=== PATIENT | male | born 1955 | race Two or more races ===

== ENCOUNTER 2025-04-11 15:10 | Emergency (ER) | payer MEDICARE, SELFPAY ==
--- NOTE | 2025-04-11 15:14 | EKG_ITS ---
[facility] Test Date: 2025-04-11 Pat Name: JOANA RODRIGUEZ Department: Room: - Gender: Male [employer] Processing Supervisor: : 1955 Requested By: Ayaka Mark Order Number: [id number] Reading MD: Ayaka Mark Measurements Intervals [place] Rate: 93 P: 62 UT: 149 QRS: -23 QRSD: 89 T: 22 QT: 340 QTc: 424 Interpretive Statements SINUS RHYTHM WITH FREQUENT VENTRICULAR PREMATURE COMPLEXES BORDERLINE LEFT AXIS DEVIATION [QRS AXIS < -20] ABNORMAL RHYTHM ECG WARNING: DATA QUALITY MAY AFFECT INTERPRETATION Compared to ECG 11/08/2022 16:44:10 Ventricular premature complex(es) now present /store/S0/[id number]/ecg/[id number].pdf
--- NOTE | 2025-04-11 15:14 | XR_ITS ---
Examination: AP chest single view. Technique: AP portable upright chest single view. Indications: Chest pain shortness of breath today. Findings: Normal heart size. Early pneumonia right lower lobe. Moderate osteopenia. Impression: Early pneumonia right lower lobe.
[2025-04-11 15:15] VITALS: BP 125/69; PULSE 87; RESP 16; TEMP 36.9; O2SAT 97
[2025-04-11 15:16] VITALS: BMI 26.4
[2025-04-11 15:24] VITALS: PULSE 88; RESP 16; O2SAT 99
[2025-04-11] MEDS: RINGERS LACTATED 1000 ML 1,000 ML 999 ML IV (15:40)
[2025-04-11 16:10] LABS: Base Excess, Venous -2 (-3-3); O2 Saturation, Venous 93 % (96-97); PCO2, Venous 45 mmHg (36-56); PO2, Venous 63 mmHg (15-58); pH, Venous 7.33 (7.33-7.66)
[2025-04-11 16:11] LABS: Collection Type, Urine Clean Catch; RBC,Urine 0 /hpf (0-3)
[2025-04-11 16:13] LABS: Basophils # (Auto) 0.1 Thou/mm3 (0.0-0.2); Basophils % (Auto) 1 % (0-2.5); Eosinophils # (Auto) 0.4 Thou/mm3 (0.0-0.5); Eosinophils % (Auto) 6 % (0-10); Hematocrit 36.1 % (41.0-53.0); Hemoglobin 12.3 g/dL (13.5-16.0); Immature Granulocytes Auto 0.04 Thou/mm3 (0.00-0.00); Lymphocytes # (Auto) 1.5 Thou/mm3 (1.0-4.8); Lymphocytes % (Auto) 21 % (10-50); Mean Corpuscular HGB Conc 34.1 g/dl (31.0-37.0); Mean Corpuscular Hemoglobin 29.1 pg (25.0-35.0); Mean Corpuscular Volume 85 fL (80-100); Monocytes # (Auto) 0.5 Thou/mm3 (0.0-0.8); Monocytes % (Auto) 6 % (0-12); Neutrophils # (Auto) 4.7 Thou/mm3 (1.8-7.7); Neutrophils % (Auto) 65 % (37-80); Nucleated Red Blood Cell # 0.00 Thou/mm3 (0.00-0.00); Nucleated Red Blood Cell % 0 /100 WBC (0); Platelet Count 254 Thou/mm3 (140-440); RDW Standard Deviation 47.5 fL (35.1-43.9); Red Blood Count 4.23 Miln/mm3 (4.50-5.90); White Blood Count 7.2 Thou/mm3 (3.8-10.6)
[2025-04-11 16:38] LABS: Bilirubin,Urine Negative (Negative); Blood,Urine Negative (Negative); Clarity,Urine Clear (Clear/Hazy); Color,Urine Lt-Yellow (Lt Yel-Yel); Culture Indicated,Urine Not Indicated; Glucose, Urine 4+ (Negative); Ketones,Urine Negative (Negative); Leukocyte Esterase,Urine Negative (Negative); Nitrite,Urine Negative (Negative); PH,Urine 6.0 (5.0-7.0); Protein,Urine Trace (Neg - Trace); Specific Gravity,Urine 1.024 (1.001-1.035); Squamous Epithelial Cell,Urine < 1 /hpf (0-5); Urobilinogen,Urine Negative mg/dL (0.0-1.0); WBC,Urine < 1 /hpf (0-5)
[2025-04-11 16:50] LABS: Alanine Aminotransferase 15 U/L (10-49); Albumin, Serum 4.2 gm/dL (3.4-4.8); Albumin/Globulin Ratio 1.5 (1.2-2.2); Alkaline Phosphatase 139 U/L (46-116); Anion Gap 10 (7-16); Aspartate Amino Transferase 14 U/L (0-34); BUN/Creatinine Ratio 12 Ratio (12-20); Bilirubin,Total 1.1 mg/dL (0.3-1.2); Blood Urea Nitrogen 27 mg/dL (9-23); Calcium 9.4 mg/dL (8.3-10.6); Calcium (Corrected) 9.4 mg/dL (8.5-10.1); Carbon Dioxide 24.1 mMol/L (20.0-31.0); Chloride 96 mMol/L (98-107); Creatine Kinase 43 U/L (34-171); Creatinine (Component) 2.3 mg/dL (0.6-1.3); Estimated Creatinine Clearance 22.7 mL/min (>60); Globulin 2.8 gm/dL (2.3-3.5); Lipase 52 U/L (12-53); Osmolality,Calculated 289 (275-295); Potassium 4.6 mMol/L (3.4-5.1); Sodium 130 mMol/L (136-145); Total Protein 7.0 gm/dL (5.7-8.2); Troponin I < 0.002 ng/mL (0.0-0.045); eGFR 30 See Note
[2025-04-11 16:53] LABS: Glucose 535 mg/dL (74-106)
[2025-04-11 18:32] VITALS: BP 117/73; PULSE 71; RESP 16; TEMP 36.8; O2SAT 97
--- NOTE | 2025-04-11 18:53 | PD.EDDIZZY ---
ED Dizzyness RME/HPI General Chief Complaint: Dizziness Stated Complaint: DIZZINESS Time Seen by Provider: 04/11/25 15:14 Source: patient and EMS Arrival date/time: 04/11/25 15:10 Limitations: no limitations RME / HPI RME / HPI Narrative: Patient is a 70-year-old male is in the emergency department with concerns for feeling lightheaded, that he is going to faint, and generally unwell. Endorses excessive sweating. Denies chills, chest pain, palpitations, abdominal pain does endorse dysuria. Denies drugs alcohol smoking recent travel or sick contacts. MD complaint: near syncope Timing: sudden onset Related Data Home Medications ?Medication ?Instructions ?Recorded ?Confirmed aspirin 81 mg tablet,delayed 81 mg PO QDAY 11/09/19 07/21/23 release atorvastatin 20 mg tablet 20 mg PO QDAY 11/09/19 07/21/23 glimepiride 4 mg tablet 4 mg PO QAM 11/09/19 07/21/23 lisinopril 40 mg tablet 40 mg PO QDAY 11/09/19 07/21/23 amlodipine 2.5 mg tablet 2.5 mg PO QDAY 07/21/23 07/21/23 empagliflozin 10 mg tablet 10 mg PO QDAY 07/21/23 07/21/23 (Jardiance) gabapentin 300 mg capsule 300 mg PO BID 07/21/23 07/21/23 sitagliptin phosphate 100 mg 100 mg PO QDAY 07/21/23 07/21/23 tablet (Januvia) tramadol 50 mg tablet 25 mg PO Q6H PRN Pain 07/21/23 07/21/23 Held on 07/21/23. Instructions: Resume on 07/22/23. vitamin B comp no.3-folic acid 1 1 tab PO QDAY 07/21/23 07/21/23 mg-vit C 60 mg-biotin 300 mcg tablet ([facility]) Previous Rx's ?Medication ?Instructions ?Recorded amoxicillin 875 mg-potassium 1 tab PO Q12H #10 tabs 04/11/25 clavulanate 125 mg tablet Allergies Allergy/AdvReac Type Severity Reaction Status Date / Time No Known Allergies Allergy Verified 07/21/23 10:06 ED Exam General Limitations: Present no limitations General appearance: Present alert and in no apparent distress Head Head exam: Present atraumatic and normocephalic Eye Eye exam: Present normal appearance, PERRL and EOMI ENT ENT exam: Present normal exam and normal oropharynx Neck Neck exam: Present normal inspection and full ROM Chest Chest inspection: Present normal inspection and symmetric chest wall rise Respiratory Respiratory exam: Present normal lung sounds bilaterally; Absent respiratory distress Cardiovascular Cardiovascular exam: Present regular rate and normal rhythm Abdominal Exam Abdominal exam: Present soft; Absent distention, tenderness or guarding Extremities Exam Extremities exam: Present normal inspection and full ROM Back Exam Back exam: Present normal inspection Neurological Exam Neurological exam: Present alert, oriented X3, CN II-XII intact and normal gait; Absent motor sensory deficit Skin Skin exam: Present warm, dry and intact Course Quality Measures none Orders Category Date Time Status Bedside Blood Glucose NOW Care 04/11/25 16:10 Active Bedside COVID-19 Antigen Test NOW Care 04/11/25 15:34 Active Bedside Influenza A&B Antigen Test NOW Care 04/11/25 15:34 Completed EKG (ED ONLY) *Do not use* NOW Care 04/11/25 15:15 Completed Insert IV NOW Care 04/11/25 15:39 Active CXR [XR chest 1V] Stat Exams 04/11/25 15:14 Completed EKG (ED Only) Stat Exams 04/11/25 15:14 Draft CBC Stat Lab 04/11/25 15:40 Completed CK [Creatine Kinase] Stat Lab 04/11/25 15:40 Completed CMP [Comprehensive Metabolic Panel] Stat Lab 04/11/25 15:40 Completed Lipase Stat Lab 04/11/25 15:40 Completed Troponin I Stat Lab 04/11/25 15:40 Completed UA, C/S IF [Urinalysis, C/S if Indicated] Stat Lab 04/11/25 15:57 Completed VBG [Venous Blood Gas] Stat Lab 04/11/25 15:40 Completed Insulin Regular Med 04/11/25 18:17 Discontinued 10 unit SC X1 ONE Ringers Lactated 1000 ml [Lactated Ringers] 1,000 ml Med 04/11/25 15:16 Discontinued IV 999 mls/hr cefTRIAXone/D5w 1gm IV premix [Rocephin/D5w 1gm IV Med 04/11/25 18:55 Active premix] 1 gm in 50 ml IV STAT Vital Signs Vital signs: Vital Signs Temperature 98.5 F 04/11/25 15:15 Pulse Rate 87 04/11/25 15:15 Respiratory Rate 16 04/11/25 15:15 Blood Pressure 125/69 04/11/25 15:15 Pulse Oximetry (%) 97 04/11/25 15:15 Oxygen Delivery Method Room Air 04/11/25 15:15 Dizziness [facility] Narrative [facility] Narrative:: Patient is a 70-year-old male that came into the Emergency Department due to weakness. Vital signs and exam as listed. Concern for ACS arrhythmia electrolyte abnormality viral syndrome pneumonia diet DKA among others. Ordered labs EKG and medications for symptom and for symptom relief. Labs without acute hematologic or significant metabolic abnormality other than hyperglycemia. Patient has chronic kidney disease that is progressively worsening. Patient is not in DKA. Provided patient with a liter of fluids felt significantly better after fluids [id number] glucose was in the 400s provided 10 units of insulin. Urinalysis without evidence of infection. Chest x-ray with early pneumonia. Given patient's symptoms on presentation, will treat. Troponin not elevated. EKG performed today at 1529, sinus rhythm, normal levels, frequent PVCs, nonspecific T wave changes, no cardiac alert. On reevaluation patient hemodynamically stable, not in distress, symptoms completely resolved will discharge home with close return precautions follow-up with his primary care doctor Patient data External records reviewed:: [facility] previous records Clinical information provided by:: patient and EMS Social determinants that could affect healthcare access:: none Patient has the following chronic illnesses:: See MDM How is presenting disease/condition affected by chronic disease/condition?: exacerbated by Evaluation data The following diagnostics were reviewed and interpreted by me:: lab results, radiology exam(s) and EKG tracing(s) Lab and/or radiology exams considered but not ordered:: Not Interpretation Summary: See MDM Medications / Prescriptions Medications or Prescriptions considered but not ordered:: None Medication administrations:: Medication Administration History Ceftriaxone Sodium/Dextrose (Rocephin/D5w 1gm Iv Premix) 1 gm in 50 mls @ 100 mls/hr IV STAT STA Stop: 04/11/25 19:24 Discontinued Medications Lactated Ringer's (Lactated Ringers) 1,000 mls @ 999 mls/hr IV .Q1H1M ONE Stop: 04/11/25 16:16 Last Infusion: 04/11/25 18:02 Dose: Infused Documented By: Admin: 04/11/25 15:40 Dose: 999 mls/hr Documented By: CATHERINE Insulin Human Regular (Insulin Hum Regular 1 Unit/0.01 Ml (Per Unit)) 10 unit SC X1 ONE Stop: 04/11/25 18:18 See above Consultations Consultation(s) initiated? (list below): No Diagnosis Most likely diagnosis given after review of the tests above:: See MDM Admission Indicated Admission indicated?: not indicated Admission Request Was there a request for admission?: No Disposition Plan Disposition Plan: Discharge Discharge Attestation Discharge Attestation: The patient and all family members were given an opportunity to ask questions and understood the discharge instructions. Discharge instructions specifically effects, indications for sooner follow up or return to the emergency department, and the expected course of current diagnosis. Patient condition: Stable Discharge Plan Plan Patient Disposition: HOME (Self Care) Prescriptions/Referrals Prescriptions/Med Rec: New amoxicillin-pot clavulanate 875-125 mg tablet 1 tab PO Q12H Qty: 10 0RF No Action glimepiride 4 mg tablet 4 mg PO QAM lisinopril 40 mg tablet 40 mg PO QDAY aspirin 81 mg tablet,delayed release (DR/EC) 81 mg PO QDAY atorvastatin 20 mg tablet 20 mg PO QDAY amlodipine 2.5 mg tablet 2.5 mg PO QDAY Patient Comments: TOME SUSAN TABLETA TODOS LOS D FOR 90 DAYS tramadol 50 mg tablet 25 mg PO Q6H PRN (Reason: Pain) Patient Comments: TAKE 1/2 TABLET BY MOUTH EVERY 6 HOURS NEEDED gabapentin 300 mg capsule 300 mg PO BID Patient Comments: TAKE 1 CAPSULE (300 MG) BY MOUTH 2 TIMES PER DAY, TITRATE TOLERATED Januvia 100 mg tablet 100 mg PO QDAY Patient Comments: TOME SUSAN TABLETA TODOS LOS D FOR 90 DAYS [facility] 1-60-300 mg-mg-mcg tablet 1 tab PO QDAY Patient Comments: TOME SUSAN TABLETA TODOS LOS D Jardiance 10 mg tablet 10 mg PO QDAY Patient Comments: TOME SUSAN TABLETA TODOS LOS D FOR 90 DAYS Referrals: Kyle Pozo MD [Primary Care Provider] - In 1 week Problem List Clinical Impression: Acute hyperglycemia, Pneumonia Patient/Caregiver Discharge Instructions Education Materials: High Blood Sugar (Hyperglycemia), ED Pneumonia (Adult) Additional Instructions: Lewis funcion de los rinoes heaton empeorado desde la ultima vez que estuvo en el hospital. Es important hacer hosea con un nefrologo. Por favor hacer hosea con lewis medico de cabecera dentro de 1-2 trimble. Calvin nahomi medicamentos reji la formula de lewis medico. Regresar de inmediato si tieno nuevos sintomas o sintomas de preocupacion. Print Language: Thai Stand Alone Forms: Yovana Award Info., Patient Portal Info Letter
[2025-04-11] MEDS: INSULIN HUM REGULAR 1 UNIT/0.01 ML (PER UNIT) 10 UNIT SC (19:05)
[2025-04-11] MEDS: cefTRIAXone/D5w 1gm IV premix 1 GM/50 ML BAG IV (19:05)
== END 2025-04-11 19:46 | disposition home or self-care (01) ==
PROVIDERS: Emergency Provider Emergency Medicine; PCP Family Medicine
DX: J18.9 Pneumonia, unspecified organism (principal); R73.9 Hyperglycemia, unspecified; I49.3 Ventricular premature depolarization
CPT/HCPCS: 36415; 71045; 80053; 81001; 82550; 82803; 83690; 84484; 85025; 87400; 87811; 93005; 96361; 96365; 99283; J0696; J1815; J7120

== ENCOUNTER 2025-06-30 08:19 | Emergency (ER) | payer MEDICARE, MEDICAID, SELFPAY ==
[2025-06-30] VITALS (7 sets, daily range): BP systolic 121–161; BP diastolic 70–80; PULSE 63–81; RESP 16–18; TEMP 36.6–37.2; O2SAT 97–100; BMI 22.8
--- NOTE | 2025-06-30 09:38 | PD.EDMALE ---
ED Male Genitalurinary RME/HPI General Chief complaint: Urogenital-Male Stated complaint: HEMATURIA SINCE YESTERDAY DYSURIA Time Seen by Provider: 06/30/25 09:38 Arrival date/time: 06/30/25 08:19 RME / HPI RME / HPI Narrative: 70-year-old male with past medical history of hypertension, high cholesterol, diabetes presents to the ER complaining of pain when he pees along with blood in his urine since last night. Denies any fever, nausea, vomiting, flank pain, scrotal pain abdominal pain. Related Data Home Medications ?Medication ?Instructions ?Recorded ?Confirmed aspirin 81 mg tablet,delayed 81 mg PO QDAY 11/09/19 07/21/23 release atorvastatin 20 mg tablet 20 mg PO QDAY 11/09/19 07/21/23 glimepiride 4 mg tablet 4 mg PO QAM 11/09/19 07/21/23 lisinopril 40 mg tablet 40 mg PO QDAY 11/09/19 07/21/23 amlodipine 2.5 mg tablet 2.5 mg PO QDAY 07/21/23 07/21/23 empagliflozin 10 mg tablet 10 mg PO QDAY 07/21/23 07/21/23 (Jardiance) gabapentin 300 mg capsule 300 mg PO BID 07/21/23 07/21/23 sitagliptin phosphate 100 mg 100 mg PO QDAY 07/21/23 07/21/23 tablet (Januvia) tramadol 50 mg tablet 25 mg PO Q6H PRN Pain 07/21/23 07/21/23 Held on 07/21/23. Instructions: Resume on 07/22/23. vitamin B comp no.3-folic acid 1 1 tab PO QDAY 07/21/23 07/21/23 mg-vit C 60 mg-biotin 300 mcg tablet ([facility]) Previous Rx's ?Medication ?Instructions ?Recorded amoxicillin 875 mg-potassium 1 tab PO Q12H #10 tabs 04/11/25 clavulanate 125 mg tablet Allergies Allergy/AdvReac Type Severity Reaction Status Date / Time No Known Allergies Allergy Verified 06/30/25 08:22 Past Medical History Past Medical History NEUROLOGIC: Negative Neurological Disorders or Seizures CARDIAC: Positive Cardiac Disorders, Hypercholesterolemia and Hypertension; Negative Congestive Heart Failure RESPIRATORY: Negative Chronic Obstructive Pulmonary Disease (COPD) GASTROINTESTINAL: Negative Gastrointestinal Disorders GENITOURINARY: Negative Genitourinary Disorders or Renal Disease MUSCULOSKELETAL: Positive Musculoskeletal Disorders (fell 4 years ago. gets injections every 4 months for hip pain) ENDOCRINE: Positive Endocrine Disorders and Diabetes Mellitus Type 2; Negative Diabetes Mellitus Type 1 HEMATOLOGIC: Negative Blood Disorders OTHER HISTORY: Negative Falls, Blood Transfusions, Anesthesia Reactions, Chicken Pox, Measles, Mumps or Cancer Social History SMOKING STATUS: Heavy (> 1 pack/day) Course Orders Category Date Time Status CBC Stat Lab 06/30/25 09:40 Ordered CMP [Comprehensive Metabolic Panel] Stat Lab 06/30/25 09:40 Ordered Urinalysis Stat Lab 06/30/25 09:40 Ordered Urine Culture Stat Lab 06/30/25 09:40 Ordered Vital Signs Vital signs: Vital Signs Temperature 97.9 F 06/30/25 09:17 Pulse Rate 81 06/30/25 09:17 Respiratory Rate 18 06/30/25 09:17 Blood Pressure 144/71 H 06/30/25 09:17 Pulse Oximetry (%) 97 06/30/25 09:17 Oxygen Delivery Method Room Air 06/30/25 09:17 Discharge Plan Prescriptions/Referrals Prescriptions/Med Rec: No Action glimepiride 4 mg tablet 4 mg PO QAM lisinopril 40 mg tablet 40 mg PO QDAY aspirin 81 mg tablet,delayed release (DR/EC) 81 mg PO QDAY atorvastatin 20 mg tablet 20 mg PO QDAY amoxicillin-pot clavulanate 875-125 mg tablet 1 tab PO Q12H Qty: 10 0RF amlodipine 2.5 mg tablet 2.5 mg PO QDAY Patient Comments: KIRSTY DAVIS TABLETA TODOS LOS D FOR 90 DAYS tramadol 50 mg tablet 25 mg PO Q6H PRN (Reason: Pain) Patient Comments: TAKE 1/2 TABLET BY MOUTH EVERY 6 HOURS NEEDED gabapentin 300 mg capsule 300 mg PO BID Patient Comments: TAKE 1 CAPSULE (300 MG) BY MOUTH 2 TIMES PER DAY, TITRATE TOLERATED Januvia 100 mg tablet 100 mg PO QDAY Patient Comments: KIRSTY SUSAN TABLETA TODOS LOS D FOR 90 DAYS [facility] Rx 1-60-300 mg-mg-mcg tablet 1 tab PO QDAY Patient Comments: KIRSTY DAVIS TABLETA TODOS LOS D Jardiance 10 mg tablet 10 mg PO QDAY Patient Comments: TOME SUSAN TABLETA TODOS LOS D FOR 90 DAYS Patient/Caregiver Discharge Instructions Print Language: Mauritanian
--- NOTE | 2025-06-30 09:43 | PD.EDRME ---
Rapid Medical Screening Exam E Arrival date/time: 06/30/25 08:19 70-year-old male with past medical history of hypertension, high cholesterol, diabetes presents to the ER complaining of pain when he pees along with blood in his urine since last night. Denies any fever, nausea, vomiting, flank pain, scrotal pain abdominal pain. Chief Complaint: Urogenital-Male Time Seen by Provider: 06/30/25 09:38 Vital signs: Vital Signs Temperature 97.9 F 06/30/25 09:17 Pulse Rate 81 06/30/25 09:17 Respiratory Rate 18 06/30/25 09:17 Blood Pressure 144/71 H 06/30/25 09:17 Pulse Oximetry (%) 97 06/30/25 09:17 Oxygen Delivery Method Room Air 06/30/25 09:17 RME Narrative: 70-year-old male with past medical history of hypertension, high cholesterol, diabetes presents to the ER complaining of pain when he pees along with blood in his urine since last night. Denies any fever, nausea, vomiting, flank pain, scrotal pain abdominal pain. I briefly performed a screening evaluation to initiate work-up and expedite care. Complete history, physical exam, and plan of care is deferred to the provider in the main ED. Exam: Constitutional: Vital Signs Reviewed. Well appearing. No acute distress. Not toxic appearing. Head: Normocephalic, atraumatic. Eyes: Conjunctiva clear. ENT: Mucous membranes moist. Neck: Trachea midline. Normal range of motion. No nuchal rigidity. Respiratory: Normal effort. No respiratory distress or accessory muscle use. Neuro: Alert and oriented. Speech normal. No focal gross motor or sensory deficits observed. Skin: Warm, dry, normal color. Psych: Pleasant. Normal affect. Cooperative. Clinical Impression: Rule out hemorrhagic cystitis
[2025-06-30 10:17] LABS: Collection Type, Urine Pedi-Bag; Squamous Epithelial Cell,Urine 0 /hpf (0-5); WBC,Urine 0 /hpf (0-5)
[2025-06-30 10:30] LABS: Basophils # (Auto) 0.1 Thou/mm3 (0.0-0.2); Basophils % (Auto) 1 % (0-2.5); Eosinophils # (Auto) 0.4 Thou/mm3 (0.0-0.5); Eosinophils % (Auto) 6 % (0-10); Hematocrit 39.7 % (41.0-53.0); Hemoglobin 13.4 g/dL (13.5-16.0); Immature Granulocytes Auto 0.02 Thou/mm3 (0.00-0.00); Lymphocytes # (Auto) 1.3 Thou/mm3 (1.0-4.8); Lymphocytes % (Auto) 19 % (10-50); Mean Corpuscular HGB Conc 33.8 g/dl (31.0-37.0); Mean Corpuscular Hemoglobin 29.1 pg (25.0-35.0); Mean Corpuscular Volume 86 fL (80-100); Monocytes # (Auto) 0.4 Thou/mm3 (0.0-0.8); Monocytes % (Auto) 5 % (0-12); Neutrophils # (Auto) 4.8 Thou/mm3 (1.8-7.7); Neutrophils % (Auto) 69 % (37-80); Nucleated Red Blood Cell # 0.00 Thou/mm3 (0.00-0.00); Nucleated Red Blood Cell % 0 /100 WBC (0); Platelet Count 251 Thou/mm3 (140-440); RDW Standard Deviation 47.6 fL (35.1-43.9); Red Blood Count 4.61 Miln/mm3 (4.50-5.90); White Blood Count 6.9 Thou/mm3 (3.8-10.6)
[2025-06-30 10:34] LABS: Bilirubin,Urine Negative (Negative); Blood,Urine 3+ (Negative); Clarity,Urine Bloody (Clear/Hazy); Color,Urine Drk-Red (Lt Yel-Yel); Glucose, Urine 4+ (Negative); Ketones,Urine Negative (Negative); Nitrite,Urine Negative (Negative); PH,Urine 6.0 (5.0-7.0); Protein,Urine 1+ (Neg - Trace); RBC,Urine 7368 /hpf (0-3); Specific Gravity,Urine 1.026 (1.001-1.035); Urobilinogen,Urine Negative mg/dL (0.0-1.0)
[2025-06-30 10:35] LABS: Leukocyte Esterase,Urine Negative (Negative)
[2025-06-30 10:51] LABS: Alanine Aminotransferase 22 U/L (10-49); Albumin, Serum 4.8 gm/dL (3.4-4.8); Albumin/Globulin Ratio 1.6 (1.2-2.2); Alkaline Phosphatase 170 U/L (46-116); Anion Gap 8 (7-16); Aspartate Amino Transferase 20 U/L (0-34); BUN/Creatinine Ratio 13 Ratio (12-20); Bilirubin,Total 1.0 mg/dL (0.3-1.2); Blood Urea Nitrogen 26 mg/dL (9-23); Calcium 9.5 mg/dL (8.3-10.6); Calcium (Corrected) 9.5 mg/dL (8.5-10.1); Carbon Dioxide 26.6 mMol/L (20.0-31.0); Chloride 97 mMol/L (98-107); Creatinine (Component) 2.0 mg/dL (0.6-1.3); Estimated Creatinine Clearance 29.5 mL/min (>60); Globulin 3.0 gm/dL (2.3-3.5); Osmolality,Calculated 302 (275-295); Potassium 5.1 mMol/L (3.4-5.1); Sodium 132 mMol/L (136-145); Total Protein 7.8 gm/dL (5.7-8.2); eGFR 35 See Note
[2025-06-30 10:58] LABS: Glucose 691 mg/dL (74-106)
--- NOTE | 2025-06-30 11:02 | XR_ITS ---
EXAMINATION: AP chest single view TECHNIQUE: AP portable semiupright chest single view Date and time: June 30, 2025, 11:16 a.m., comparison 09/11/2024 INDICATIONS: Coughing shortness of breath beginning 2 days ago. FINDINGS: Normal heart size No pneumonia or pulmonary edema. Moderate osteopenia IMPRESSION: No active disease
--- NOTE | 2025-06-30 11:02 | XR_ITS ---
Examination: Retroperitoneal ultrasound, complete Technique: Multiple high resolution grayscale images of the retroperitoneum obtained, including kidneys and bladder. Exam date and time: June 30, 2025, 11:44 a.m. INDICATIONS: Hematuria episodes beginning 3 days ago FINDINGS: Right kidney 10.4 cm renal cortex 2.0 cm Left kidney 10.3 cm and the cortex 1.9 cm 23 x 18 mm mid left renal cyst Moderate bilateral renal scar formation, no hydronephrosis or renal calculi Bladder prevoid volume 337 cc unable to void Marked prostatomegaly 7.2 x 4.9 x 6.2 cm volume 113 cc irregular contour no prostate nodules IMPRESSION: Moderate bilateral renal scar formation No hydronephrosis Marked prostatomegaly
[2025-06-30] MEDS: SODIUM CHLORIDE 0.9% 1000 ML 1,000 ML 999 ML IV ×2 (11:14→13:04)
--- NOTE | 2025-06-30 11:21 | PD.EDMALE ---
ED Male Genitalurinary RME/HPI General Chief complaint: Urogenital-Male Stated complaint: HEMATURIA SINCE YESTERDAY DYSURIA Time Seen by Provider: 06/30/25 09:38 Arrival date/time: 06/30/25 08:19 Limitations: no limitations RME / HPI RME / HPI Narrative: 70-year-old male with past medical history of hypertension, high cholesterol, diabetes presents to the ER complaining of pain when he pees along with blood in his urine since last night. Denies any fever, nausea, vomiting, flank pain, scrotal pain abdominal pain. I briefly performed a screening evaluation to initiate work-up and expedite care. Complete history, physical exam, and plan of care is deferred to the provider in the main ED. DR. LUCERO MAIN ED EVALUATION: 70-year-old male presents to the Emergency Department with complaint of hematuria since yesterday. He denies fevers or chills. He is accompanied by his . No flank pain, abdominal pain, or dysuria reported. Past medical history includes diabetes with glucose reading high on arrival and hypertension. Related Data Home Medications ?Medication ?Instructions ?Recorded ?Confirmed aspirin 81 mg tablet,delayed 81 mg PO QDAY 11/09/19 07/21/23 release atorvastatin 20 mg tablet 20 mg PO QDAY 11/09/19 07/21/23 glimepiride 4 mg tablet 4 mg PO QAM 11/09/19 07/21/23 lisinopril 40 mg tablet 40 mg PO QDAY 11/09/19 07/21/23 amlodipine 2.5 mg tablet 2.5 mg PO QDAY 07/21/23 07/21/23 empagliflozin 10 mg tablet 10 mg PO QDAY 07/21/23 07/21/23 (Jardiance) gabapentin 300 mg capsule 300 mg PO BID 07/21/23 07/21/23 sitagliptin phosphate 100 mg 100 mg PO QDAY 07/21/23 07/21/23 tablet (Januvia) tramadol 50 mg tablet 25 mg PO Q6H PRN Pain 07/21/23 07/21/23 Held on 07/21/23. Instructions: Resume on 07/22/23. vitamin B comp no.3-folic acid 1 1 tab PO QDAY 07/21/23 07/21/23 mg-vit C 60 mg-biotin 300 mcg tablet ([facility]) Previous Rx's ?Medication ?Instructions ?Recorded amoxicillin 875 mg-potassium 1 tab PO Q12H #10 tabs 04/11/25 clavulanate 125 mg tablet Allergies Allergy/AdvReac Type Severity Reaction Status Date / Time No Known Allergies Allergy Verified 06/30/25 08:22 Review of Systems Review of Systems Systems Reviewed: All systems reviewed, normal except as documented Past Medical History Past Medical History CARDIAC: Positive Cardiac Disorders, Hypercholesterolemia and Hypertension MUSCULOSKELETAL: Positive Musculoskeletal Disorders (fell 4 years ago. gets injections every 4 months for hip pain) ENDOCRINE: Positive Endocrine Disorders and Diabetes Mellitus Type 2 Social History SMOKING STATUS: Current some day smoker SUBSTANCE USE: does not use ALCOHOL: Never ED Exam General Limitations: Present no limitations General appearance: Present alert and in no apparent distress Head Head exam: Present atraumatic, normocephalic and normal inspection Eye Eye exam: Present normal appearance, PERRL and EOMI ENT ENT exam: Present normal exam, normal oropharynx and mucous membranes moist Neck Neck exam: Present normal inspection, full ROM and trachea midline Chest Chest inspection: Present normal inspection and symmetric chest wall rise Respiratory Respiratory exam: Present normal lung sounds bilaterally Cardiovascular Cardiovascular exam: Present regular rate, normal rhythm and normal heart sounds Abdominal Exam Abdominal exam: Present soft and normal bowel sounds exam: Present other (Penis uncircumcised with mild erythema proximal to the glans on the shaft and erythema to surrounding skin, no pus or exudate; testicles descended) Extremities Exam Extremities exam: Present normal inspection and full ROM Back Exam Back exam: Present normal inspection and full ROM Neurological Exam Neurological exam: Present alert, oriented X3 and CN II-XII intact Psychiatric Psychiatric exam: Present normal affect and normal mood Skin Skin exam: Present warm, dry, intact and normal color Course Quality Measures none Orders Category Date Time Status Hypertrichologist NOW Care 06/30/25 11:02 Completed Continuous Pulse Oximetry NOW Care 06/30/25 11:02 Completed EKG (ED ONLY) *Do not use* NOW Care 06/30/25 11:02 Completed Insert IV NOW Care 06/30/25 11:02 Completed EKG (ED Only) Stat Exams 06/30/25 11:02 Ordered US renal BI Stat Exams 06/30/25 11:02 Completed XR chest 1V portable Stat Exams 06/30/25 11:02 Completed CBC Stat Lab 06/30/25 09:54 Completed CMP [Comprehensive Metabolic Panel] Stat Lab 06/30/25 09:54 Completed Partial Thromboplastin Time Stat Lab 06/30/25 09:40 Completed Prothrombin Time with INR Stat Lab 06/30/25 09:40 Completed Urinalysis Stat Lab 06/30/25 09:50 Completed Urine Culture Stat Lab 06/30/25 09:40 Received Insulin Regular Med 06/30/25 14:45 Discontinued 10 unit SC X1 ONE Insulin Regular Med 06/30/25 11:24 Discontinued 14 unit SC X1 ONE Sodium Chloride 0.9% 1000 ml [Ns] 1,000 ml Med 06/30/25 11:02 Discontinued IV 999 mls/hr Sodium Chloride 0.9% 1000 ml [Ns] 1,000 ml Med 06/30/25 12:50 Discontinued IV 999 mls/hr Vital Signs Vital signs: Vital Signs Temperature 97.9 F 06/30/25 09:17 Pulse Rate 81 06/30/25 09:17 Respiratory Rate 18 06/30/25 09:17 Blood Pressure 144/71 H 06/30/25 09:17 Pulse Oximetry (%) 97 06/30/25 09:17 Oxygen Delivery Method Room Air 06/30/25 09:17 Urogenital - Male MDM Narrative MDM Narrative:: I, Shyanne Wang, am scribing for and in the presence of Dr. Lucero. 70-year-old male with hematuria since yesterday and erythematous uncircumcised penis on exam. Blood glucose reading high on arrival. Workup initiated for urinary source or infectious process. Differential diagnoses include UTI, balanitis, and uncontrolled diabetes related hematuria. 1700: Patient will be discharged with hematuria and hyperglycemia due to diabetes mellitus Patient data External records reviewed:: [facility] previous records Clinical information provided by:: patient and spouse Social determinants that could affect healthcare access:: none Patient has the following chronic illnesses:: Past medical history includes diabetes and hypertension. How is presenting disease/condition affected by chronic disease/condition?: exacerbated by Evaluation data The following diagnostics were reviewed and interpreted by me:: lab results, radiology exam(s) and EKG tracing(s) (My interpretation: EKG performed at 1125 hours, sinus rhythm, rate 69, no acute changes, no STEMI) Lab and/or radiology exams considered but not ordered:: none Interpretation Summary: See MDM narrative above. RADIOLOGY Procedure(s): US renal BI Accession Number(s): [id number] cc: Blayne Lucero MD; Kyle Pozo MD; Gonsalo Mosley MD~ Examination: Retroperitoneal ultrasound, complete Technique: Multiple high resolution grayscale images of the retroperitoneum obtained, including kidneys and bladder. Exam date and time: June 30, 2025, 11:44 a.m. INDICATIONS: Hematuria episodes beginning 3 days ago FINDINGS: Right kidney 10.4 cm renal cortex 2.0 cm Left kidney 10.3 cm and the cortex 1.9 cm 23 x 18 mm mid left renal cyst Moderate bilateral renal scar formation, no hydronephrosis or renal calculi Bladder prevoid volume 337 cc unable to void Marked prostatomegaly 7.2 x 4.9 x 6.2 cm volume 113 cc irregular contour no prostate nodules IMPRESSION: Moderate bilateral renal scar formation No hydronephrosis Marked prostatomegaly Dictated By: Gonsalo Mosley MD Procedure(s): XR chest 1V portable Accession Number(s): [id number] cc: Blayne Lucero MD; Kyle Pozo MD; Gonsalo Mosley MD~ EXAMINATION: AP chest single view TECHNIQUE: AP portable semiupright chest single view Date and time: June 30, 2025, 11:16 a.m., comparison 09/11/2024 INDICATIONS: Coughing shortness of breath beginning 2 days ago. FINDINGS: Normal heart size No pneumonia or pulmonary edema. Moderate osteopenia IMPRESSION: No active disease Dictated By: Gonsalo Mosley MD Medications / Prescriptions Medications or Prescriptions considered but not ordered:: none Medication administrations:: Medication Administration History Discontinued Medications Sodium Chloride (Ns) 1,000 mls @ 999 mls/hr IV .Q1H1M ONE Stop: 06/30/25 12:02 Last Infusion: 06/30/25 12:15 Dose: Infused Documented By: Admin: 06/30/25 11:14 Dose: 999 mls/hr Documented By: BY Sodium Chloride (Ns) 1,000 mls @ 999 mls/hr IV .Q1H1M ONE Stop: 06/30/25 13:50 Last Infusion: 06/30/25 14:05 Dose: Infused Documented By: Admin: 06/30/25 13:04 Dose: 999 mls/hr Documented By: BY Insulin Human Regular (Insulin Hum Regular 1 Unit/0.01 Ml (Per Unit)) 14 unit SC X1 ONE Stop: 06/30/25 11:25 Last Admin: 06/30/25 12:15 Dose: 14 unit Documented By: BY Co-signed By: LISA Insulin Human Regular (Insulin Hum Regular 1 Unit/0.01 Ml (Per Unit)) 10 unit SC X1 ONE Stop: 06/30/25 14:46 Last Admin: 06/30/25 14:53 Dose: 10 unit Documented By: BY Co-signed By: LISA see above Consultations Consultation(s) initiated? (list below): No Diagnosis Urogenital Male Differential Diagnosis: other (UTI, balanitis, and uncontrolled diabetes related hematuria) Most likely diagnosis given after review of the tests above:: Hematuria Hyperglycemia due to diabetes mellitus Admission Indicated Admission indicated?: not indicated Admission Request Was there a request for admission?: No Disposition Plan Disposition Plan: Discharge Discharge Attestation Discharge Attestation: The patient and all family members were given an opportunity to ask questions and understood the discharge instructions. Discharge instructions specifically effects, indications for sooner follow up or return to the emergency department, and the expected course of current diagnosis. Patient condition: Stable Discharge Plan Plan Patient Disposition: HOME (Self Care) Patient condition on transfer: Stable Prescriptions/Referrals Prescriptions/Med Rec: No Action glimepiride 4 mg tablet 4 mg PO QAM lisinopril 40 mg tablet 40 mg PO QDAY aspirin 81 mg tablet,delayed release (DR/EC) 81 mg PO QDAY atorvastatin 20 mg tablet 20 mg PO QDAY amoxicillin-pot clavulanate 875-125 mg tablet 1 tab PO Q12H Qty: 10 0RF amlodipine 2.5 mg tablet 2.5 mg PO QDAY Patient Comments: KIRSTY DAVIS TABLETA TODOS LOS D FOR 90 DAYS tramadol 50 mg tablet 25 mg PO Q6H PRN (Reason: Pain) Patient Comments: TAKE 1/2 TABLET BY MOUTH EVERY 6 HOURS NEEDED gabapentin 300 mg capsule 300 mg PO BID Patient Comments: TAKE 1 CAPSULE (300 MG) BY MOUTH 2 TIMES PER DAY, TITRATE TOLERATED Januvia 100 mg tablet 100 mg PO QDAY Patient Comments: KIRSTY DAVIS TABLETA TODOS LOS D FOR 90 DAYS [facility] 1-60-300 mg-mg-mcg tablet 1 tab PO QDAY Patient Comments: GIUSEPPEE SUSAN TABLETA TODOS LOS D Jardiance 10 mg tablet 10 mg PO QDAY Patient Comments: KIRSTY DAVIS TABLETA TODOS LOS D FOR 90 DAYS Referrals: Kyle Pozo MD [Primary Care Provider, Family Practice] - In 1 week Problem List Clinical Impression: Hematuria, Hyperglycemia due to diabetes mellitus Patient/Caregiver Discharge Instructions Discharge Activity: activity as tolerated Education Materials: Diabetes: The Benefits of Exercise, ED Diabetes with High Blood Sugar Additional Instructions: Please see your doctor on Wednesday. You need a referral to see a urologist because of your hematuria or blood in your urine. Watch your diet carefully. Reduce your calories. Avoid sugars. Take your blood sugar before meals and at bedtime. Consider using sliding scale insulin to adjust your blood sugars. Continue on your current insulin medication and other medications. Wednesday please have your doctor recheck your blood sugar Print Language: Armenian Stand Alone Forms: Yovana Award Info., Patient Portal Info Letter
[2025-06-30 11:46] LABS: INR 1.0 (0.9-1.3); Partial Thromboplastin Time 27.9 Seconds (22.0-36.0); Prothrombin Time 10.9 Seconds (9.0-12.2)
[2025-06-30] MEDS: INSULIN HUM REGULAR 1 UNIT/0.01 ML (PER UNIT) 14 UNIT SC (12:15)
[2025-06-30] MEDS: INSULIN HUM REGULAR 1 UNIT/0.01 ML (PER UNIT) 10 UNIT SC (14:53)
== END 2025-06-30 17:16 | disposition home or self-care (01) ==
PROVIDERS: Physician Assistant; Emergency Provider Family Medicine; PCP Family Medicine
DX: E11.65 Type 2 diabetes mellitus with hyperglycemia (principal); R31.9 Hematuria, unspecified; N28.89 Other specified disorders of kidney and ureter; R05.9 Cough, unspecified; R06.02 Shortness of breath; I10 Essential (primary) hypertension; E78.00 Pure hypercholesterolemia, unspecified; F17.210 Nicotine dependence, cigarettes, uncomplicated; Z79.84 Long term (current) use of oral hypoglycemic drugs
CPT/HCPCS: 36415; 71045; 76770; 80053; 81001; 85025; 85610; 85730; 87077; 87086; 87186; 93005; 96360; 96361; 99283; J1815; J7030